=== PATIENT | male | born 1970 | race Two or more races ===

== ENCOUNTER 2022-07-02 13:02 | Inpatient (IN) | payer MEDICAID ==
[~2022-07-02] VITALS: Ht 177.8 cm; Wt 95.0 kg
[2022-07-02] MEDS ORDERED: ACCU-CHEK COMFORT CURVE STRIP VI ONE (13:30)
[2022-07-02 13:49] LABS: Basophils # (auto) 0.1 10 ^3/uL (0-0.2); Basophils % (auto) 1.8 % (0.0-2.0); Eosinophils # (auto) 0.2 10 ^3/uL (0-0.8); Eosinophils % (auto) 2.9 % (0.0-7.0); Hematocrit 43.8 % (41.0-53.0); Lymphocytes # (auto) 1.7 10 ^3/uL (0.4-5.4); Mean Corpuscular Hemoglobin 30.2 pg (28.0-32.0); Mean Corpuscular Hgb Conc. 34.3 g/dL (32.0-36.0); Mean Corpuscular Volume 87.9 fL (80.0-100.0); Monocytes # (auto) 0.3 10 ^3/uL (0-1.3); Monocytes % (auto) 6.2 % (0.0-12.0); Neutrophils # (auto) 3.3 10 ^3/uL (1.6-8.6); Neutrophils % (auto) 59.1 % (37.0-80.0); Nucleated Red Blood Cells % 0.1 %; Red Blood Cells 4.98 10^6/uL (4.5-5.90); Red Cell Distribution Width 13.3 % (11.8-14.3); White Blood Cell 5.6 10^3/uL (4.4-10.8)
[2022-07-02 14:14] LABS: Albumin 3.8 g/dL (3.4-5.0); BUN/Creatinine Ratio 12.7; Calcium 9.2 mg/dL (8.5-10.1); Potassium 3.6 mmol/L (3.5-5.1)
[2022-07-02 14:16] LABS: Bilirubin, Total 0.5 mg/dL (0.2-1.0); Total Protein 7.6 g/dL (6.4-8.2)
[2022-07-02] MEDS ORDERED: NITROGLYCERIN 0.4 MG SL TAB SL PRN (19:30)
[2022-07-02] MEDS ORDERED: MORPHINE SULFATE INJ 2 MG/ml SYRG IV PRN (19:30)
[2022-07-02 20:43] LABS: Cholesterol 203 mg/dL (< 200); Triglycerides 131 mg/dL (< 150)
[2022-07-02 20:45] LABS: HDL Cholesterol 46 mg/dL (40-59); LDL Cholesterol 143 mg/dL (< 100)
[2022-07-02] MEDS: SODIUM CHLORIDE 0.9% 1,000 ML IV SCH (20:53)
[2022-07-03] MEDS: SODIUM CHLORIDE 0.9% 1,000 ML IV SCH ×3 (03:36→20:54)
[2022-07-03 06:49] LABS: Basophils # (auto) 0.1 10 ^3/uL (0-0.2); Basophils % (auto) 1.1 % (0.0-2.0); Eosinophils # (auto) 0.2 10 ^3/uL (0-0.8); Eosinophils % (auto) 3.2 % (0.0-7.0); Hematocrit 39.6 % (41.0-53.0); Hemoglobin 13.9 g/dL (13.5-17.5); Lymphocytes # (auto) 2.3 10 ^3/uL (0.4-5.4); Lymphocytes % (auto) 35.7 % (10.0-50.0); Mean Corpuscular Hemoglobin 31.1 pg (28.0-32.0); Mean Corpuscular Hgb Conc. 35.2 g/dL (32.0-36.0); Mean Corpuscular Volume 88.5 fL (80.0-100.0); Monocytes # (auto) 0.5 10 ^3/uL (0-1.3); Monocytes % (auto) 7.3 % (0.0-12.0); Neutrophils # (auto) 3.3 10 ^3/uL (1.6-8.6); Neutrophils % (auto) 52.7 % (37.0-80.0); Nucleated Red Blood Cells % 0.1 %; Red Blood Cells 4.47 10^6/uL (4.5-5.90); Red Cell Distribution Width 13.2 % (11.8-14.3); White Blood Cell 6.3 10^3/uL (4.4-10.8)
[2022-07-03 06:59] LABS: Calcium 8.4 mg/dL (8.5-10.1)
[2022-07-03 07:05] LABS: Albumin 3.5 g/dL (3.4-5.0); BUN/Creatinine Ratio 14.6; Bilirubin, Total 0.4 mg/dL (0.2-1.0); Total Protein 6.7 g/dL (6.4-8.2)
[2022-07-03 09:17] LABS: Alcohol, Urine < 3.0 mg/dL (0-10); Amphetamine Screen, Urine NEGATIVE (NEGATIVE); Barbiturate Scree,Urine NEGATIVE (NEGATIVE); Benzodiazephine Screen, Urine NEGATIVE (NEGATIVE); Cannabinoid Screen, Urine NEGATIVE (NEGATIVE); Cocaine Screen, Urine NEGATIVE (NEGATIVE); Urine Bacteria NONE SEEN /hpf (None Seen); Urine Blood 1+ /uL (Negative); Urine Mucus FEW (None Seen); Urine Specific Gravity 1.023 (1.001-1.035); Urine WBC 10 /hpf (0 - 3)
[2022-07-03 09:18] LABS: Opiate Scree,Urine NEGATIVE (NEGATIVE); Phencyclidine Screen, Urine NEGATIVE (NEGATIVE)
[2022-07-03] MEDS: ENOXAPARIN SOD 40 MG/0.4 ML SYRINGE SC SCH (10:40)
[2022-07-03] MEDS ORDERED: ONDANSETRON HCL 4 MG/2 ML VIAL IV PRN (12:30)
[2022-07-03] MEDS ORDERED: ACETAMINOPHEN 325 MG TAB PO PRN (12:30)
[2022-07-03] MEDS ORDERED: ASPirin 81 mg TAB PO ONE (12:30)
[2022-07-03 22:44] VITALS: BP 113/68
[2022-07-03 22:48] VITALS: BP 113/68
[2022-07-04] MEDS: SODIUM CHLORIDE 0.9% 1,000 ML IV SCH ×3 (03:30→21:01)
[2022-07-04 04:30] VITALS: BP 101/61
[2022-07-04 08:44] VITALS: BP 100/55
[2022-07-04] MEDS: ASPirin 81 mg TAB PO SCH (11:15)
[2022-07-04] MEDS: ENOXAPARIN SOD 40 MG/0.4 ML SYRINGE SC SCH (11:16)
[2022-07-04 13:24] VITALS: BP 110/70
[2022-07-04 16:53] VITALS: BP 100/58
[2022-07-04 22:00] VITALS: BP 101/64
[2022-07-05 05:00] VITALS: BP 100/66
[2022-07-05] MEDS: SODIUM CHLORIDE 0.9% 1,000 ML IV SCH ×3 (05:17→21:18)
[2022-07-05 08:30] VITALS: BP 95/56
[2022-07-05] MEDS: ASPirin 81 mg TAB PO SCH (09:45)
[2022-07-05] MEDS: ENOXAPARIN SOD 40 MG/0.4 ML SYRINGE SC SCH (09:46)
[2022-07-05 13:17] VITALS: BP 103/65
[2022-07-05 16:48] VITALS: BP 101/64
[2022-07-05 22:00] VITALS: BP 104/62
[2022-07-05] MEDS ORDERED: ATORVASTATIN 20 MG TAB PO SCH (22:00)
[2022-07-06 05:00] VITALS: BP 104/63
[2022-07-06] MEDS: SODIUM CHLORIDE 0.9% 1,000 ML IV SCH ×2 (05:18→11:30)
[2022-07-06 08:30] VITALS: BP 111/74
[2022-07-06] MEDS ORDERED: ATOR20TA PO (10:28)
[2022-07-06] MEDS: ENOXAPARIN SOD 40 MG/0.4 ML SYRINGE SC SCH (11:12)
[2022-07-06] MEDS: ASPirin 81 mg TAB PO SCH (11:12)
[2022-07-06 13:01] VITALS: BP 104/63
[2022-07-06 13:05] VITALS: BP 99/58
== END 2022-07-06 14:08 | disposition home or self-care (01) | DRG 204 ==
LOC: ER 13:02 → TELE 19:29 → TELE-CENTR 07-03 22:03
PROVIDERS: ADMIT Registered Nurse; ATTEND Internal Medicine Geriatric Medicine
DX: I95.1 Orthostatic hypotension (principal); G45.9 Transient cerebral ischemic attack, unspecified; E78.5 Hyperlipidemia, unspecified; F17.200 Nicotine dependence, unspecified, uncomplicated; Z20.822 Contact with and (suspected) exposure to COVID-19
CPT/HCPCS: 36415; 70450; 70551; 71045; 80053; 80061; 80307; 81001; 82962; 83036; 84443; 85025; 85379; 87426; 93005; 93306; 93886; 95819; 96360; G0378

== ENCOUNTER 2024-11-02 06:52 | Day surgery (SDC) | payer MEDICAID ==
[~2024-11-02] VITALS: Ht 172.7 cm; Wt 86.2 kg
[~2024-11-02 06:52] MED LIST: CHOL10009 PO; HYDRX10T PO; IBUP-1456 PO; MECL12.586 PO
[2024-11-02] MEDS ORDERED: IODIXANOL 320MG/ML 100ML BTL IV ONE (07:28)
[2024-11-02] MEDS ORDERED: LIDOCAINE 2%HCL (LOCAL ANESTH.) INJ 20ML MDV ONE (07:41)
[2024-11-02] MEDS ORDERED: ANGIOMAX 250 MG VIAL IV ONE (07:45)
[2024-11-02] MEDS ORDERED: MIDAZOLAM HCL 2MG/2ML 2ml VIAL (1mg/ml) ONE (07:46)
[2024-11-02] MEDS ORDERED: SODIUM CHL 0.9% 0 ML ONE (07:46)
[2024-11-02] MEDS ORDERED: HEPARIN SODIUM (PORCINE) 5000 UNITS/ML 1ML VIAL ONE (07:46)
[2024-11-02] MEDS ORDERED: fentaNYL CITRATE 100 MCG/2 ML VL ONE (07:46)
[2024-11-02] MEDS ORDERED: VERAPAMIL 2.5MG/ML INJ 2ML VIAL IV ONE (07:46)
[2024-11-02 08:09] VITALS: BP 113/76; PULSE 70; RESP 14; TEMP 98; O2SAT 94
--- NOTE | 2024-11-02 08:11 | DVHOP2 ---
Operative Report Operative Report CARDIAC PESTICIDE CHEMIST PROCEDURE REPORT [place], [place] Date of Service: 11/02/24 [employer] Architect: Trudi Land MD PROCEDURES PERFORMED: Coronary angiogram, left heart catheterization, conscious sedation administration and supervision, less than 15 minutes; fluoroscopy use and interpretation. PREOPERATIVE DIAGNOSES: Abnormal stress test with CCS class 3 angina, POSTOP DIAGNOSIS: large LAD bridge DESCRIPTION OF PROCEDURE: The patient or appropriate family signed informed consent understanding the risks, benefits and alternatives of the procedure, they wished to proceed. 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 state. The patient was prepped in a sterile fashion. Sedation was used per cardiac cath protocol. I administered 2 mL of 2% lidocaine to the right wrist. With an antegrade front wall puncture. I cannulated the right radial artery and placed a 6-[place] Glidesheath slender. Next, an intra-arterial spasmolytic was administered. Next, a - 6[place] catheter were used for coronary angiogram and LVEDP measurement and pressure pullback. At the completion of procedure, all guides and wires were removed, and there were no immediate complications. FINDINGS: RCA: Moderate vessel off the right sinus of Valsalva, there is no severe flow limiting stenosis. LEFT MAIN: Moderate size left main, it bifurcates into LAD and circumflex. patent CIRCUMFLEX: Moderate caliber vessel coming off the left main with no flow limiting stenosis. LAD: LAD is a moderate caliber vessel coming of the left main. there is a large mid vessel LAD bridge with near obliteration of the vessel cavity and squeezing in systole. the distal LAD is small . and patent CONCLUSIONS: 1. significant LAD bridge noted 2. LVEDP of 11 mmhg PLAN: Aggressive risk factor modification and medical management for the patient. if pt has severe ischemia, surgical unroofing procedure could be considered with CT surgery TRUDI LAND MD Nov 02, 2024 08:11
[2024-11-02 08:24] VITALS: BP 103/68; PULSE 70; RESP 13; TEMP 98.7; O2SAT 94
[2024-11-02 08:39] VITALS: BP 101/67; PULSE 70; RESP 10; TEMP 98.7; O2SAT 94
[2024-11-02 08:54] VITALS: BP 105/66; PULSE 70; RESP 14; TEMP 98.6; O2SAT 94
[2024-11-02 09:09] VITALS: BP 110/68; PULSE 70; RESP 14; TEMP 98.6; O2SAT 94
== END 2024-11-02 12:10 | disposition home or self-care (01) ==
LOC: CATH 06:52
PROVIDERS: ATTEND Internal Medicine
DX: R94.39 Abnormal result of other cardiovascular function study (principal); I25.118 Atherosclerotic heart disease of native coronary artery with other forms of angina pectoris; R00.1 Bradycardia, unspecified; Z79.899 Other long term (current) drug therapy
CPT/HCPCS: 93458; C1894; J1644; J2250; J3010; J7030; Q9967; 99152